=== PATIENT | male | born 1960 | race Caucasian/White ===

== ENCOUNTER 2019-02-17 12:14 | Emergency (ER) | payer OTHER ==
[~2019-02-17] VITALS: Ht 182.9 cm; Wt 108.9 kg
[2019-02-17 12:15] VITALS: BP_SYST 156
--- NOTE | 2019-02-17 12:15 | NUR ---
Patient to ER bed 04 to gown for evaluation. Side rails up.
--- NOTE | 2019-02-17 12:40 | NUR ---
Patient transported to radiology via WHEELCHAIR, accompanied by MAIL PROCESSOR.
--- NOTE | 2019-02-17 12:45 | NUR ---
REPORT RECEIVED FROM LILLIE HERNDON. RESUMED CARE OF PATIENT.
--- NOTE | 2019-02-17 12:48 | NUR ---
Returned from radiology, back to [facility]. PATIENT IN NO ACUTE DISTRESS.
--- NOTE | 2019-02-17 12:50 | NUR ---
PATIENT SITTING UP ON BED. AAOx4. RESPIRATIONS EVEN AND UNLABORED. NO SOB. DENIES OF ANY CHEST PAIN, HEADACHE, DIZZINESS, NAUSEA, OR VOMITING. PT CAME IN TO THE ED S/P TRIP AND FALL AT WORK. PT STATES THAT HE TRIPPED OVER A CORD, FELL, AND HIT THE BACK OF HIS HEAD ON THE CONCRETE FLOOR. PT DENIES OF ANY KO. PT NOTED WITH A REDDENED LUMP TO THE BACK OF THE HEAD. SKIN INTACT. NO BRUISING. PT STATES THAT HE IS TAKING PLAVIX DAILY. BACK OF HEAD PAIN = 3/10; TOLERABLE VERBALIZED. NO OBJECTIVE S/SX OF PAIN OBSERVED. ICE PACK OFFERED FOR BACK OF HEAD PAIN BUT PT REFUSED AT THIS TIME. REST AND RELAXATION ENCOURAGED. WILL CONTINUE TO MONITOR.
--- NOTE | 2019-02-17 12:55 | NUR ---
Dr. Francis @ bedside for examination.
--- NOTE | 2019-02-17 13:01 | NUR ---
Patient sitting up in bed using his cellphone. Patient AOx4 and is obeying commands. Patient in no signs of acute distress @ this time. Patient stated he has NKA. Patient also stated that he has had a stent put in October of 2017 and is currently on plavix. Patient also stated he sometimes has pain d/t his gout. No complaints of pain @ this time. Will continue to monitor.
[2019-02-17 13:25] VITALS: BP_SYST 156
--- NOTE | 2019-02-17 13:25 | NUR ---
Patient given written and verbal discharge instructions and verbalizes understanding. ER MD discussed with patient the results and treatment provided. Patient in stable condition. ID arm band removed. Patient educated on pain management and to follow up with PMD. Pain Scale 0/10. Opportunity for questions provided and answered. Medication side effect fact sheet provided.
== END 2019-02-17 13:25 | disposition home or self-care (01) ==
LOC: SED 12:14
DX: S00.03XA Contusion of scalp, initial encounter (principal); E78.00 Pure hypercholesterolemia, unspecified; R03.0 Elevated blood-pressure reading, without diagnosis of hypertension; Z86.79 Personal history of other diseases of the circulatory system; W01.198A Fall on same level from slipping, tripping and stumbling with subsequent striking against other object, initial encounter; Y93.89 Activity, other specified; Y92.69 Other specified industrial and construction area as the place of occurrence of the external cause; Y99.8 Other external cause status
CPT/HCPCS: 70450-TC; 99284